=== PATIENT | female | born 1950 | race Two or more races ===

== ENCOUNTER 2021-03-06 09:06 | Outpatient (CLI) | payer OTHER | END 2021-03-06 09:52 | disposition home or self-care (01) | LOC: SONOGRAMA 09:06 | PROVIDERS: ATTEND Pathology Anatomic Pathology & Clinical Pathology | DX: D34 Benign neoplasm of thyroid gland (principal); E04.8 Other specified nontoxic goiter ==

== ENCOUNTER → 2021-03-07 | Outpatient (CLI) | payer OTHER | END | disposition home or self-care (01) | LOC: PPH VACUNA 09:00 | PROVIDERS: ATTEND Emergency Medicine Pediatric Emergency Medicine | DX: Z23 Encounter for immunization (principal) ==